=== PATIENT | female | born 1940 | race Caucasian/White ===

== ENCOUNTER 2017-02-21 08:41 | Emergency (ER) | payer MEDICARE, BC ==
--- NOTE | 2017-02-25 21:52 | ER ---
ADMIT: 02/21/2017 RM/LOC: ER [facility] MR#: [id number] [address] [facility] [address] [place], [place] [address] SHAKEELANSLEY HANKS [address] [place] [address] Emergency Room Report SEX: F AGE: 76 : 1940 DATE: 02/21/2017 ADDENDUM: See T-sheet for complete H and P. This 76-year-old female, who misstepped, [place]. She had immediate pain in her left arm, was not able to move her left arm secondary to pain in her left shoulder. She states she very lightly bumped her head, but is really not concerned about her head and she is not on any blood thinners. She denies any numbness or tingling in her left hand. On physical exam, she has some swelling on her left deltoid region, does not appear to be dislocated. She has no pain with palpation of the left elbow and can range of motion the left elbow. Left wrist is uninvolved. She has good radial pulse and sensation is present in the hand with good strength with hand hearing aid assistant. She is unable to range of motion of her left shoulder. X-rays were done, which reveal a comminuted left proximal humerus fracture. She has seen Dr. Zheng in the past and she would like to follow up with him and I did speak to his nurse who said that she can follow up in a week. She was placed in a left arm immobilizer and given a prescription for Ultram to try first for her pain as she does not want narcotics but she was also given a Garrison prescription if that does not work. She is to rest, use ibuprofen also and follow up if she has any concerns or there is an emergency in the Emergency Department. DIAGNOSIS: Left proximal humerus fracture. Demetris Collazo MD/ johnathon JOB #: [id number] CC: Demetris Collazo MD, Attending Physician UNKNOWN, Family Physician
== END 2017-02-21 10:35 | disposition home or self-care (01) ==
LOC: ER 08:41
PROC: 2W39X1Z Immobilization of Left Upper Extremity using Splint (ICD-10-PCS; principal; 2017-02-21)
DX: S42.202A Unspecified fracture of upper end of left humerus, initial encounter for closed fracture (principal); Z88.5 Allergy status to narcotic agent; Z79.899 Other long term (current) drug therapy; Z90.710 Acquired absence of both cervix and uterus; W10.9XXA Fall (on) (from) unspecified stairs and steps, initial encounter

== ENCOUNTER 2017-02-27 09:43 | Emergency (ER) | payer MEDICARE, BC ==
--- NOTE | 2017-03-10 21:34 | ER ---
ADMIT: 02/27/2017 RM/LOC: ER [facility] MR#: [id number] [address] [id number] ANSLEY ZUNIGA [address] [place] [address] Emergency Room Report SEX: F AGE: 76 : 1940 DATE: 02/27/2017 ADDENDUM: This patient comes to the ER because she has been unable to have a bowel movement for 6 days. She is currently taking tramadol for a recent fractured humerus. She is feeling nauseated, able to keep fluids down. No vomiting or diarrhea, just has pain in her rectum. On physical exam, her abdomen is soft, nontender to palpation. She does have quite a bit of stool in her rectum on digital rectal exam. We did do an enema, it was difficult for her to keep stool in, however, we did digitally disimpact her. She had a large bowel movement with relief. We will have her follow up with her primary as needed. Please see my T sheet. STACEY Carter / James Price MD / lucial JOB #: [id number] CC: James Price MD, Attending Physician Juwan Anderson MD, Family Physician
== END 2017-02-27 12:10 | disposition home or self-care (01) ==
LOC: ER 09:43
DX: K59.00 Constipation, unspecified (principal); Z90.710 Acquired absence of both cervix and uterus